=== PATIENT | female | born 1940 | race Caucasian/White ===

== ENCOUNTER → 2024-06-02 11:33 | Outpatient (REF) | payer MEDICARE, OTHER, SELFPAY | LOC: HWWDC 11:33 | PROVIDERS: ATTENDING PHYSICIAN Internal Medicine Rheumatology; FAMILY PHYSICIAN Internal Medicine | DX: Z12.31 Encounter for screening mammogram for malignant neoplasm of breast (principal); M81.0 Age-related osteoporosis without current pathological fracture; M79.641 Pain in right hand; M79.642 Pain in left hand | CPT/HCPCS: 73130; 77063; 77067; 77080; 77081 ==